=== PATIENT | male | born 1970 | race Caucasian/White ===

== ENCOUNTER 2019-05-18 08:46 | Day surgery (SDC) | payer BC ==
--- NOTE | 2019-05-09 13:33 | HP ---
PREOPERATIVE HISTORY AND PHYSICAL: DATE OF SURGERY/ADMISSION: 05/18/19 [facility] DATE OF OFFICE VISIT/ENCOUNTER: 05/09/19 ATTENDING SURGEON: Magalys Long MD * (DICTATED BY SANTOS HIDALGO) PROCEDURE: Trigger release, left ring finger. HISTORY OF PRESENT ILLNESS: This is a 49-year-old male who has had ongoing problems with triggering of his left ring finger. He has received 2 injections over time that are helpful, unfortunately the symptoms returned. At this point , he would like to proceed with surgery for this problem. The patient has psoriatic arthritis and receives injection of Enbrel every week. PAST MEDICAL HISTORY: Psoriatic arthritis. PAST SURGICAL HISTORY: 1. Tonsillectomy. 2. Surgery to correct a deviated septum. CURRENT MEDICATIONS: 1. Flonase Allergy Relief 50 mcg/ACT 2 puffs daily. 2. Quetiapine fumarate 25 mg 1 tab daily. 3. Enbrel injection q. week. ALLERGIES: No known drug allergies. FAMILY MEDICAL HISTORY: Noncontributory. SOCIAL HISTORY: The patient is employed at [employer]. He denies tobacco use and recreational drug use. He drinks alcohol on occasion. REVIEW OF SYSTEMS: Negative for general, cephalic, cardiovascular, respiratory , GI, , other musculoskeletal, integumentary, endocrine, neurologic, and hematologic symptoms. Infectious Disease: Negative for MRSA, hepatitis C, HIV. PHYSICAL EXAMINATION GENERAL: A well-developed, well-nourished 49-year-old male, in no acute distress. VITAL SIGNS: Height 5 feet 7 inches, weight 160 pounds. Pulse rate 80, blood pressure 126/84. HEENT: Normocephalic, atraumatic. Pupils are equal, round, and reactive to light and accommodation. Extraocular movements are intact. Throat is clear. NECK: Supple. No palpable lymph nodes. PULMONARY: Lungs are clear to auscultation bilaterally. No wheezes, rales, or rhonchi. CARDIOVASCULAR: Regular rate and rhythm. S1, S2. No murmurs, rubs, or gallops. No edema. ABDOMEN: Positive bowel sounds. Soft, nontender. MUSCULOSKELETAL: On exam of the patient's left hand, there is no visible swelling. He has tenderness to palpation at the A1 jeancarlos of the ring finger. He has trouble fully flexing the finger. Neurovascular function is intact. NEUROLOGICAL: Alert and oriented x3. Cranial nerves II through XII are intact. Sensation is intact to light touch. IMPRESSION: Left ring finger trigger finger. PLAN: The patient is scheduled to undergo a trigger release, left ring finger, with Dr. Long on 05/18/19. He will return to the office 10 days postop for followup and suture removal. A prescription for Tramadol was e-scribed to the patient's pharmacy for postoperative pain management. SANTOS HIDALGO [id number]/CPS #: [id number] FRANCESCA
[~2019-05-18 08:46] MED LIST: Buffered Lidocaine 1% SYRIN* 1 ML/SYRINGE INTRADERM ONE; Lactated Ringers 1000 ML Bag* 1,000 ML IV SCH
[2019-05-18] MEDS ORDERED: Lidocaine 1% INJ* 10 MG/ML 30 ML SDV ONE (09:19)
[2019-05-18] MEDS ORDERED: Midazolam* 1 MG/ML 2 ML VIAL (2 MG) ONE ×2 (09:37→11:10)
[2019-05-18] MEDS ORDERED: Lidocaine 2% PF * 5 ML VIAL ONE ×2 (09:57→11:21)
[2019-05-18] MEDS ORDERED: Propofol* 10 MG/ML 20 ML BTL ONE ×3 (09:57→11:16)
[2019-05-18] MEDS ORDERED: fentaNYL* 50 MCG/ML 2 ML VIAL (100 MCG VIAL) ONE (10:10)
[2019-05-18] MEDS ORDERED: oxyCODONE/Acetamin 5/325 MG* TAB PO PRN (10:14)
[2019-05-18] MEDS ORDERED: Naloxone* 0.4 MG/ML 1 ML VIAL IV PRN (10:14)
[2019-05-18] MEDS ORDERED: fentaNYL* 50 MCG/ML 2 ML VIAL (100 MCG VIAL) IV PRN (10:14)
[2019-05-18] MEDS ORDERED: Acetaminophen TAB* 325 MG PO PRN (10:14)
[2019-05-18] MEDS ORDERED: Phenylephrine 40 MCG/ML SYRINGE ONE (11:25)
[2019-05-18] MEDS ORDERED: Ondansetron INJ* 2 MG/ML VIAL ONE (11:36)
[2019-05-18] MEDS ORDERED: Dexamethasone IV* 4 MG/ML 1 ML (4 MG) ONE (11:36)
[2019-05-18] MEDS ORDERED: Metoclopramide IV* 5 MG/ML 2 ML VIAL ONE (11:36)
[2019-05-18] MEDS ORDERED: Ketorolac INJ* 30 MG/ML 1 ML VIAL ONE (11:36)
[2019-05-18 11:43] VITALS: BP 122/88
--- NOTE | 2019-05-18 20:35 | OP ---
DATE OF OPERATION: 05/18/19 [facility] DATE OF : 66 SURGEON: Magalys Long MD. STAIN WIPER: SANTOS Daniel. ANESTHESIA: Local MAC. PRE-OP DIAGNOSIS: Left ring finger trigger finger. POST-OP DIAGNOSIS: Left ring finger trigger release. OPERATIVE PROCEDURE: Left ring finger trigger release. ESTIMATED BLOOD LOSS: Zero. TOURNIQUET TIME: About 10 minutes. INDICATIONS FOR PROCEDURE: Desmond is a 49-year-old male who has triggering of his left ring finger. It has recurred after treatment with cortisone injection and he presents for left ring finger trigger release. DESCRIPTION OF PROCEDURE: The patient was brought to the operating room, was given a sedation anesthetic and a local infiltration of 10 cc of 1% plain lidocaine in the palm of his left hand. The skin of his left hand and forearm was prepped and draped in the usual sterile fashion. The hand and forearm were exsanguinated and the tourniquet elevated to 250 mmHg. A transverse incision was made centered over the A1 jeancalros of the left ring finger. We dissected through the subcutaneous tissue down to the A1 jeancarlos. The jeancarlos was incised longitudinally completely releasing the flexor tendons which were in good condition. The wound was irrigated and the skin edges reapproximated with 4-0 nylon suture. The wounds were dressed with Xeroform, 4x4, Webril, and an Jon wrap. The patient tolerated the procedure well and was brought to the recovery room in good condition. [id number]/CPS #: [id number] MTDD
== END 2019-05-20 11:34 | disposition home or self-care (01) ==
LOC: OREAST 08:46
PROVIDERS: ATTEND Orthopaedic Surgery
DX: M65.342 Trigger finger, left ring finger (principal); L40.50 Arthropathic psoriasis, unspecified
CPT/HCPCS: J1100; J1885; J2250; J2405; J2704; J2765; J3010